=== PATIENT | male | born 1960 | race Caucasian/White ===

== ENCOUNTER 2021-08-13 15:31 | Emergency (ER) | payer SELFPAY ==
[~2021-08-13] VITALS: Ht 172.7 cm; Wt 107.2 kg
[2021-08-13 16:40] LABS: MONOCYTES # (AUTO) 0.4 K/uL (0.1-1.30)
[2021-08-13 16:47] LABS: CALCIUM, SERUM 8.2 mg/dL (8.5-10.1); CARBON DIOXIDE 21 mmol/L (21-32); CHLORIDE 98 mmol/L (98-107); GLUCOSE 245 mg/dL (74-106); POTASSIUM 3.3 mmol/L (3.5-5.1); SODIUM SERUM 129 mmol/L (136-145); UREA NITROGEN, BLOOD 15 mg/dL (7-18)
[2021-08-13 17:13] LABS: BASOPHILS % (AUTO) 0.3 % (0.0-2.0); HEMATOCRIT 45 % (39-51); HEMOGLOBIN 15.7 g/dL (13.5-17.5); LYMPHOCYTES # (AUTO) 1.1 K/uL (0.8-4.8); LYMPHOCYTES % (AUTO) 31.9 % (20.0-44.0); MEAN CORPUSCULAR HGB CONC 35 g/dl (31.0-36.0); MEAN CORPUSCULAR VOLUME 82 fL (80-96); MONOCYTES % (AUTO) 10.8 % (2.0-12.0); NEUTROPHILS # (AUTO) 1.9 K/uL (1.8-8.9); PLATELET COUNT (AUTO) 100 K/uL (150-450); RED BLOOD CELL COUNT(AUTO) 5.51 MIL/uL (4.5-6.0); WHITE BLOOD COUNT (AUTO) 3.4 K/uL (4.3-11.0)
[2021-08-13] MEDS ORDERED: POTASSIUM CHLORIDE 20 MEQ TAB.PRT.SR PO ONE ×2 (20:00→20:35)
[2021-08-13] MEDS ORDERED: BENZ-13 PO (20:19)
[2021-08-13 21:09] VITALS: BP 134/93
== END 2021-08-13 21:10 | disposition home or self-care (01) ==
LOC: ER 15:35
DX: U07.1 COVID-19 (principal); E87.6 Hypokalemia; E87.1 Hypo-osmolality and hyponatremia; D69.6 Thrombocytopenia, unspecified; R73.9 Hyperglycemia, unspecified; R94.31 Abnormal electrocardiogram [ECG] [EKG]; J98.11 Atelectasis; D72.819 Decreased white blood cell count, unspecified; I44.4 Left anterior fascicular block
CPT/HCPCS: 36415; 71045; 80048; 83880; 84484 ×2; 85025; 85378; 87426; 93005 ×2; 99285; C9803